=== PATIENT | male | born 1950 ===

== ENCOUNTER 2017-12-04 08:57 | Day surgery (SDC) | payer MEDICARE, OTHER ==
[2017-12-04] MEDS ORDERED: Dextrose 5%/0.45% NS 1,000 ML IV SCH (09:00)
[2017-12-04] MEDS ORDERED: Acetaminophen-Codeine 300/30 mg Tab PO PRN (09:00)
[2017-12-04] MEDS ORDERED: Rocuronium 10 mg/ml (5 ml) ONE (12:23)
[2017-12-04] MEDS ORDERED: Propofol 10 mg/ml Inj (20 ML) ONE (12:23)
[2017-12-04] MEDS ORDERED: ceFAZolin IV 1 gm in Dextrose 1 GM/50 ML BAG IVPB ONE (12:28)
[2017-12-04] MEDS ORDERED: Lidocaine/Epinephrine 1% 1:100000 10 ML IJ ONE (12:29)
[2017-12-04] MEDS ORDERED: HYDROmorphone 0.5 mg/0.5 ml ISec IVP PRN (12:55)
[2017-12-04 14:38] VITALS: O2SAT 97
[2017-12-04 15:39] VITALS: BP 111/53; PULSE 71; RESP 17; TEMP 98.4
--- NOTE | 2017-12-05 00:15 | OP ---
PROCEDURE DATE: 12/04/2017 PREOPERATIVE DIAGNOSIS: Right aryepiglottic fold lesion. POSTOPERATIVE DIAGNOSIS: Right aryepiglottic fold lesion. PROCEDURE: Microdirect laryngoscopy with biopsy. SIGNIFICANT FINDINGS: Right AE fold lesion extending to the arytenoids. DESCRIPTION OF PROCEDURE: The patient was brought into room, placed in supine position. Anesthesia was initiated through an ET tube. Shoulder roll was placed. Neck extended. The patient was draped in usual manner. Wet gauze was placed over the gums in order to protect them and was removed at the end of the case. A direct laryngoscope was inserted into the oral cavity, passed through the oropharynx and hypopharynx. The base of tongue, vallecula, epiglottis, AE folds, false cords, true cords, arytenoids, pharyngeal tomlinson, pyriform sinuses were brought into view. The lesion was noted in the right AE fold extending to the arytenoids. The direct laryngoscope was suspended on the Yeh reclamation engineer the usual manner. A microscope was brought into position to view the lesion and multiple biopsies were taken. Bleeding was controlled using water irrigation, and the microscope was taken out of position. Direct laryngoscope was taken off suspension and removed. The patient was taken off anesthesia and taken to recovery room in stable manner. Ward Cisneros MD
== END 2017-12-04 14:48 | disposition home or self-care (01) ==
LOC: C.SDS 08:57
PROVIDERS: ATTEND Otolaryngology
DX: J38.7 Other diseases of larynx (principal)
CPT/HCPCS: 31535; 82948; 88305; J1100; J2001; J2405; J2704; J3010

== ENCOUNTER 2017-12-29 09:13 | Day surgery (SDC) | payer MEDICARE, OTHER ==
[2017-12-28 11:40] VITALS: BMI 27.1
[2017-12-29 09:47] LABS: BASO # 0.1 K/uL (0.0-0.2); BASO % 0.6 % (0.0-2.0); EOS # 0.3 K/uL (0.0-0.7); EOS % 2.4 % (0.0-4.0); HEMOGLOBIN 14.5 g/dL (12.0-18.0); LYMPH % 8.4 % (20.0-40.0); MEAN CORPUSCULAR HEMOGLOBIN 28.4 pg (27.0-31.0); MEAN CORPUSCULAR HGB CONC 33.8 g/dL (33.0-37.0); MONO # 0.9 K/uL (0.0-0.8); MONO % 7.9 % (0.0-10.0); NEUT # 9.4 K/uL (1.8-7.0); NEUT % 80.7 % (50.0-75.0); PLATELET COUNT 261 K/uL (130-400); RBC 5.13 Mil/uL (4.40-5.90); RED CELL DISTRIBUTION WIDTH 13.6 % (11.5-14.5)
[2017-12-29 09:50] LABS: WHITE BLOOD COUNT 11.7 K/uL (4.8-10.8)
[2017-12-29 09:58] LABS: INR 1.1; PROTHROMBIN TIME 11.9 SECONDS (9.7-12.2)
[2017-12-29] MEDS ORDERED: ceFAZolin IV 1 gm in Dextrose 1 GM/50 ML BAG IVPB ONE (09:58)
[2017-12-29 10:14] LABS: BANDS 1 % (0-2); BASOPHIL 1 % (0-2); EOSINOPHIL 6 % (0-4); LYMPHOCYTE 6 % (20-40); MONOCYTE 5 % (0-10); NEUTROPHIL 81 % (50-75); PLATELET ESTIMATE NORMAL (NORMAL); TOTAL CELLS COUNTED 100
[2017-12-29] MEDS ORDERED: Lactated Ringer's 500 ML IV ONE (11:55)
--- NOTE | 2017-12-29 12:43 | CP.SDSHP ---
Same Day Surgery H & P - History Proposed Procedure: egd PEG Pre-Op Diagnosis: dysphagia - Previous Medical/Surgical History Endocrine/Metabolic: Diabetes Comments: larynx cancer - Allergies Allergies: Allergies No Known Allergies Allergy (Verified 11/26/17 11:31) - Physical Exam Vital Signs: Vital Signs 12/29/17 12/29/17 10:00 10:20 Temperature 97.3 F L Pulse Rate 61 61 Respiratory 16 Rate Blood Pressure 120/62 O2 Sat by Pulse 99 Oximetry Mental Status: Alert & Oriented x3 Neuro: WNL Heart: WNL Lungs: WNL - {Optional Preform as Required} Abdomen: WNL - Impression Impression: dysphagia Pt. Evaluated Today:Candidate for Anesthesia & Procedure: Yes - Date & Time Date: 12/29/17 Time: 12:43 Short Stay Discharge - Short Stay Discharge Admitting Diagnosis/Reason for Visit: DYSPHAGIA Disposition: HOME/ ROUTINE
[2017-12-29] MEDS ORDERED: Midazolam 2 MG/2 ML VIAL ONE ×2 (12:50→12:59)
[2017-12-29] MEDS ORDERED: Propofol 10 mg/ml Inj (20 ML) ONE (12:50)
[2017-12-29] MEDS ORDERED: Lidocaine 4% (Laryng-O-Jet) Kit MM ONE ×2 (12:52→12:54)
[2017-12-29] MEDS ORDERED: Racepinephrine 2.25% Inhal Soln 0.5 ML UD INH ONE (13:16)
[2017-12-29] MEDS ORDERED: Dexamethasone 4 mg/1 ml IVP PRN (13:52)
[2017-12-29 14:48] VITALS: TEMP 98
[2017-12-29 15:01] VITALS: BP 121/67; PULSE 77; RESP 14; O2SAT 99
== END 2017-12-29 14:55 | disposition home or self-care (01) ==
LOC: C.ENDO 09:13
PROVIDERS: ATTEND Internal Medicine Gastroenterology
DX: R13.10 Dysphagia, unspecified (principal); Z53.8 Procedure and treatment not carried out for other reasons
CPT/HCPCS: 36415; 43235; 82948; 85025; 85610; 85730; J0690; J1100; J2250; J7120